=== PATIENT | female | born 1975 | race Caucasian/White ===

== ENCOUNTER 2025-07-06 09:44 | Outpatient (CLI) | payer OTHER ==
[~2025-07-06 09:44] MED LIST: CLARITIN10 MG; FIORICET 50-321 EACH
== END 2025-07-06 09:45 | disposition home or self-care (01) ==
LOC: SONOGRAMA 09:44
PROVIDERS: ATTEND Pathology Anatomic Pathology
DX: D24.1 Benign neoplasm of right breast (principal); N63.15 Unspecified lump in the right breast, overlapping quadrants